=== PATIENT | male | born 1965 | race Caucasian/White ===

== ENCOUNTER 2017-10-14 18:48 | Emergency (ER) | payer BC ==
[2017-10-14] MEDS ORDERED: Meloxicam 7.5 MG Tab PO STA (19:42)
[2017-10-14] MEDS ORDERED: Acetaminophen 500 MG Tab PO ONE (19:43)
--- NOTE | 2017-10-14 19:51 | EDM.PDOC ---
ED HPI GENERAL MEDICAL PROBLEM - General Chief Complaint: Respiratory Problem Stated Complaint: CHEST PAIN Time Seen by Provider: 10/14/17 19:35 Source of Information: Reports: Patient, Old Records History Limitations: Reports: No Limitations - History of Present Illness INITIAL COMMENTS - FREE TEXT/NARRATIVE: 52 yo male presents with R anterior chest pain. This pain has been present for a couple weeks, but is worse tonight. Does not recall any injury to the area. It hurts to press on the area. No self tx. Pain is also worse with coughing or breathing deep. No fever. No calf pain or swelling. Onset: Gradual Onset Date: 09/30/17 Duration: Week(s):, Getting Worse Location: Reports: Chest (R anterior) Quality: Reports: Stabbing Severity: Moderate Improves with: Reports: Rest Worsens with: Reports: Breathing, Movement Context: Reports: Other (unknown) Associated Symptoms: Reports: No Other Symptoms Treatments [employer]: Reports: Other (see below) (none) right sided chest Pain Score (Numeric/FACES): 7 - Related Data Allergies Allergy/AdvReac Type Severity Reaction Status Date / Time No Known Allergies Allergy Verified 10/14/17 19:20 Home Meds: Home Meds Atenolol [Tenormin] 50 mg PO DAILY 10/14/17 [History] Hydrochlorothiazide/Lisinopril [Lisinopril-HCTZ 20-25 MG] 1 tab PO DAILY [History] Meloxicam [Mobic] 7.5 mg PO BID PRN #30 tablet 10/14/17 [Rx] Meloxicam [Mobic] 15 mg PO DAILY 10/14/17 [History] Omeprazole 20 mg PO DAILY 10/14/17 [History] Simvastatin [Zocor] 20 mg PO DAILY 10/14/17 [History] Past Medical History HEENT History: Reports: Impaired Vision Cardiovascular History: Reports: Hypertension Respiratory History: Reports: Sleep Apnea, Other (See Below) Other Respiratory History: Cpap at bedtime Endocrine/Metabolic History: Reports: Obesity/BMI 30+ - Past Surgical History Musculoskeletal Surgical History: Reports: Knee Replacement, Other (See Below) Other Musculoskeletal Surgeries/Procedures:: Left knee replacement Social & Family History - Tobacco Use Smoking Status *Q: Never Smoker - Caffeine Use Caffeine Use: Reports: Coffee, Energy Drinks, Soda, Tea - Recreational Drug Use Recreational Drug Use: No ED ROS GENERAL - Review of Systems Review Of Systems: See Below Constitutional: Reports: No Symptoms HEENT: Reports: No Symptoms Respiratory: Reports: Pleuritic Chest Pain (R anterior). Denies: Shortness of Breath, Wheezing, Cough, Sputum, Hemoptysis Cardiovascular: Reports: No Symptoms GI/Abdominal: Reports: No Symptoms : Reports: No Symptoms Skin: Reports: No Symptoms Neurological: Reports: No Symptoms ED EXAM, GENERAL - Physical Exam Exam: See Below Exam Limited By: No Limitations General Appearance: Alert, WD/WN, No Apparent Distress, Anxious Eye Exam: Bilateral Eye: Normal Inspection Ears: Normal External Exam, Normal Canal, Hearing Grossly Normal Ear Exam: Bilateral Ear: Auricle Normal, Canal Normal Nose: Normal Inspection, Normal Mucosa, No Blood Throat/Mouth: Normal Inspection, Normal Lips, Normal Oropharynx, Normal Voice, No Airway Compromise Head: Atraumatic, Normocephalic Neck: Normal Inspection, Supple Respiratory/Chest: No Respiratory Distress, Lungs Clear, Normal Breath Sounds, No Accessory Muscle Use Cardiovascular: Regular Rate, Rhythm, Other (Point tenderness to the anterior R chest over a rib. ) GI/Abdominal: Normal Bowel Sounds, Soft, Non-Tender, No Distention Back Exam: Normal Inspection. No: CVA Tenderness (R), CVA Tenderness (L) Extremities: Normal Inspection, Normal Range of Motion, Non-Tender, No Pedal Edema Neurological: Alert, Oriented, CN II-XII Intact, Normal Cognition, No Motor/ Sensory Deficits Psychiatric: Normal Affect, Normal Mood, Anxious Skin Exam: Warm, Dry, Intact, Normal Color, No Rash Lymphatic: No Adenopathy Course - Vital Signs Last Recorded V/S: Last Vital Signs Temp 36.3 C 10/14/17 19:32 Pulse 84 10/14/17 19:32 Resp 17 10/14/17 19:32 BP 157/86 H 10/14/17 19:32 Pulse Ox 98 10/14/17 19:32 - Orders/Labs/Meds Meds: Medications Discontinued Medications Generic Name Dose Route Start Last Admin Trade Name Freq PRN Reason Stop Dose Admin Acetaminophen 1,000 mg 10/14/17 19:43 Tylenol Extra Strength PO 10/14/17 19:44 ONETIME ONE Meloxicam 15 mg 10/14/17 19:42 Mobic PO 10/14/17 19:43 NOW STA Departure - Departure Time of Disposition: 20:00 Disposition: Home, Self-Care 01 Condition: Good Clinical Impression: Rib pain on right side - Discharge Information Prescriptions: Meloxicam [Mobic] 7.5 mg PO BID PRN #30 tablet PRN Reason: Pain Referrals: PCP,None [Primary Care Provider] - Forms: ED Department Discharge Additional Instructions: Take meloxicam every 12 hrs as needed for rib pain. Add acetaminophen 1000 mg every 6 hrs as needed for added pain relief. Recheck with your provider if not improved/resolved of this pain in the next 2 weeks. Return if a lot worse.
== END 2017-10-14 20:19 | disposition home or self-care (01) ==
LOC: JP.ED 18:48
DX: R07.81 Pleurodynia (principal); I10 Essential (primary) hypertension; E66.9 Obesity, unspecified
CPT/HCPCS: 99285; A9270

== ENCOUNTER 2022-05-13 20:26 | Emergency (ER) | payer BC, OTHER ==
[2022-05-13] MEDS ORDERED: Lidocaine 1% 5 ML VIAL INJECT ONE (22:39)
[2022-05-13] MEDS ORDERED: Diphtheria,Pertussis(Acell),Tetanus Vaccine 0.5 ML Syringe IM ONE (22:39)
[2022-05-13] MEDS ORDERED: Bacitracin Oint 1 GM U/D Packet TOP ONE (22:39)
== END 2022-05-13 23:41 | disposition home or self-care (01) ==
LOC: JP.ED 20:26
DX: S51.011A Laceration without foreign body of right elbow, initial encounter (principal); M54.50 Low back pain, unspecified; M70.21 Olecranon bursitis, right elbow; I10 Essential (primary) hypertension; E66.9 Obesity, unspecified; Z68.30 Body mass index [BMI] 30.0-30.9, adult; Z23 Encounter for immunization; Z88.2 Allergy status to sulfonamides; Z79.899 Other long term (current) drug therapy; W18.2XXA Fall in (into) shower or empty bathtub, initial encounter
CPT/HCPCS: 12001; 90471; 90715; 99283-25

== ENCOUNTER 2024-11-13 17:51 | Emergency (ER) | payer BC, OTHER | END 2024-11-13 20:51 | disposition home or self-care (01) | LOC: JP.ED 17:51 | DX: S61.011A Laceration without foreign body of right thumb without damage to nail, initial encounter (principal); I10 Essential (primary) hypertension; E11.9 Type 2 diabetes mellitus without complications; E66.9 Obesity, unspecified; Z68.41 Body mass index [BMI] 40.0-44.9, adult; Z96.659 Presence of unspecified artificial knee joint; Z88.2 Allergy status to sulfonamides; Z79.84 Long term (current) use of oral hypoglycemic drugs; Z79.899 Other long term (current) drug therapy; W26.0XXA Contact with knife, initial encounter | CPT/HCPCS: 12001; 99282 ==